=== PATIENT | male | born 1945 | race Caucasian/White ===

== ENCOUNTER → 2018-06-26 | Outpatient (CLI) | payer MEDICARE, OTHER ==
--- NOTE | 2018-07-02 08:07 | PF ---
[address] [address] PULMONARY FUNCTION REPORT Name: VENECIA BARROS Room: [facility]#: [id number] Admission: 06/26/18 Attend Phys: Akshat Larios MD Discharge: Date of : 43 Report #: [id number] THIS REPORT FOR: //name// CC: Akshat Larios DATE OF SERVICE: 06/26/2018 PULMONARY FUNCTION TEST DATE OF STUDY: 06/26/2018. REQUESTING PHYSICIAN: Akshat Larios M.D. FINDINGS: A spirometry was done revealing flows to be normal. FEV1 of 3.02, FVC of 4.24 and a ratio of 71%. Mid flows were also normal. There was some improvement after inhaled bronchodilator, seen primarily at the level of the small airways, though noted at baseline. Mid flows were normal. Lung volumes by plethysmography were normal. Diffusion capacity was normal. IMPRESSION: Essentially normal PFTs, with no evidence of a significant obstructive or restrictive process. <ELECTRONICALLY SIGNED> By: Alisson White MD 07/02/18 [id number] White MD /nt
== END ==
LOC: M.PUL 08:46
DX: E11.9 Type 2 diabetes mellitus without complications (principal); E78.5 Hyperlipidemia, unspecified